=== PATIENT | female | born 1960 | race Hispanic/Latino ===

== ENCOUNTER → 2017-10-28 | Day surgery (SDC) | payer SELFPAY ==
[~2017-10-28] VITALS: Ht 160 cm; Wt 68.0 kg
--- NOTE | 2017-11-01 13:21 | Operative Report ---
Operative/Inv Procedure Report Surgery Date: 10/28/17 Name of Procedure: Bilateral mastopexy bilateral arm skin reduction Pre-Operative Diagnosis: Bilateral breast ptosis and excess skin upper arms Post-Operative Diagnosis: Same Estimated Blood Loss: scant (250) Surgeon/Classified Ad Taker: Jefferson Castillo MD Anesthesia: general endotracheal tube Operative/Procedure Note Note: She was counseled extensively on multiple occasions regards to the procedures the alternatives the risks and expected outcomes as relates to request for surgical intervention to treat significant asymptomatic excess skin of the upper arms and bilateral breast ptosis following massive weight loss. She was given a SPS informed consents which she has returned sign. She has no questions regarding the procedure other than general questions which were discussed in detail including the additional risks seen. We talked extensively about scars open wounds visible scars possibly unsightly or symptomatic scars and recurrence of ptosis or excess. She was marked in the standing position for bilateral brachioplasty and inferior Shah pattern skin excision technique. Symmetry was assessed with a measuring tape. She signed informed consent. She was taken to the operative placed supine on the table Venodyne boots were placed. The skin of the arms and chest reprepped and draped in usual sterile fashion. General anesthesia had been established intravenous antibiotics were given after the application of Venodyne boots. Skin excision was carried out staying above the brachial fascia. 3 layer closure was carried out over a drain similar procedure done on the opposite side. They breast surgery was carried out by developing superior medial and lateral skin flaps with dissection of a inferior pedicle advancing it and suturing it to the fascia the wings lateral medialward taper to make a round breast mound with use of nonabsorbable sutures. The skin was then redraped with the nipple areola complex located in the sitting position symmetrically. 3 layer closure was carried out of all the wounds in the on table appearance was excellent. There was no ischemia in the nipples. Ends dictation
== END ==
LOC: STS 02:16
DX: Z41.1 Encounter for cosmetic surgery (principal); N64.81 Ptosis of breast; E65 Localized adiposity; D64.9 Anemia, unspecified; R20.0 Anesthesia of skin
CPT/HCPCS: 88302; 88305; J0171; J0690; J2001; J2250; J2405